=== PATIENT | male | born 1950 | race Caucasian/White ===

== ENCOUNTER 2022-12-07 15:35 | Inpatient (IN) | payer MEDICARE ==
[~2022-12-07] VITALS: Ht 170.2 cm; Wt 96.2 kg
[2022-12-08] MEDS ORDERED: REMEDY ESSENTIAL ZINC PASTE 113 GM TOP PRN (01:00)
[2022-12-08] MEDS ORDERED: DIAZ5TAB4 PO (02:09)
[2022-12-08] MEDS ORDERED: QUET25TA PO (02:09)
[2022-12-08] MEDS ORDERED: HEPA500039 IV (02:09)
[2022-12-08] MEDS ORDERED: SENN-18 PO (02:09)
[2022-12-08] MEDS ORDERED: HEPA500034 SQ (02:09)
[2022-12-08] MEDS ORDERED: BISA-79 PO (02:09)
[2022-12-08] MEDS ORDERED: ONDA4TAB5 PO (02:09)
[2022-12-08] MEDS ORDERED: CYAN100096 PO (02:09)
[2022-12-08] MEDS ORDERED: DIPH25TA25 PO (02:09)
[2022-12-08] MEDS ORDERED: LIDO1ADH23 TP (02:09)
[2022-12-08] MEDS ORDERED: HYPR15DR4 OP (02:09)
[2022-12-08] MEDS ORDERED: ACET-2605 PO ×2 (02:09)
[2022-12-08] MEDS ORDERED: POLY17PO4 PO (02:09)
[2022-12-08] MEDS ORDERED: GABA300C PO (02:09)
[2022-12-08 04:00] VITALS: BP 139/72; TEMP 97.6; O2SAT 92
[2022-12-08] MEDS: MORPHINE SULFATE IR 30 MG TABLET PO PRN ×2 (06:51→15:05)
[2022-12-08 07:48] VITALS: BP 113/51; TEMP 98.5; O2SAT 100
[2022-12-08] MEDS ORDERED: Medication Not On Formulary EA (Hypromellose (Isopto Tears) 2 DROP) OP SCH (13:15)
[2022-12-08] MEDS ORDERED: diphenhydrAMINE 25 MG CAP PO PRN (13:15)
[2022-12-08] MEDS ORDERED: DIAZEPAM 5 MG TABLET PO PRN (13:15)
[2022-12-08] MEDS ORDERED: NALOXONE HCL 0.4 MG/ML AMPUL IV PRN (13:30)
[2022-12-08] MEDS: SENNOSIDES 1 TABLET PO SCH ×2 (14:00→14:50)
[2022-12-08] MEDS: MIRALAX 17 GM POWD.PACK PO SCH ×2 (14:00→14:50)
[2022-12-08] MEDS: CYANOCOBALAMIN 1,000 MCG TABLET PO SCH ×2 (14:00→14:49)
[2022-12-08] MEDS: GABAPENTIN 300 MG CAPSULE PO SCH ×2 (14:49→17:00)
[2022-12-08] MEDS ORDERED: APIX5TAB PO (15:31)
[2022-12-08 16:18] VITALS: BP 121/59; TEMP 98; O2SAT 100
[2022-12-08] MEDS: APIXABAN 5 MG TABLET PO SCH ×2 (17:14→21:00)
[2022-12-08 20:00] VITALS: BP 144/90; TEMP 98.5; O2SAT 93
[2022-12-08] MEDS ORDERED: HEPARIN SODIUM,PORCINE 5,000 UNITS/ML VIAL SQ SCH (21:00)
[2022-12-08] MEDS: QUETIAPINE FUMARATE 25 MG TABLET PO SCH ×2 (21:00→21:04)
[2022-12-09 04:00] VITALS: BP 137/72; TEMP 98.2; O2SAT 100
[2022-12-09] MEDS: GABAPENTIN 300 MG CAPSULE PO SCH ×3 (08:36→17:23)
[2022-12-09] MEDS: MIRALAX 17 GM POWD.PACK PO SCH (08:36)
[2022-12-09] MEDS: PROTEIN SUPPLEMENT (PROSTAT) 30 ML LIQUID PO SCH (08:37)
[2022-12-09] MEDS: APIXABAN 5 MG TABLET PO SCH ×2 (08:38→21:09)
[2022-12-09] MEDS: CYANOCOBALAMIN 1,000 MCG TABLET PO SCH (08:38)
[2022-12-09] MEDS: SENNOSIDES 1 TABLET PO SCH (08:40)
[2022-12-09] MEDS: MORPHINE SULFATE IR 30 MG TABLET PO PRN (09:30)
[2022-12-09] MEDS ORDERED: QUETIAPINE FUMARATE 25 MG TABLET PO PRN (10:00)
[2022-12-09] MEDS ORDERED: FLEET ENEMA 133 ML BOTTLE RC PRN (10:00)
[2022-12-09 12:00] VITALS: BP 135/78; TEMP 98; O2SAT 95
[2022-12-09 18:25] VITALS: TEMP 97.3
[2022-12-09 23:04] VITALS: BP 128/72; TEMP 98.4; O2SAT 99
[2022-12-10] MEDS: MORPHINE SULFATE IR 30 MG TABLET PO PRN ×2 (03:44→09:10)
[2022-12-10 04:29] VITALS: BP 148/72; TEMP 98.2; O2SAT 99
[2022-12-10 06:46] LABS: BASOPHILS % (AUTO) 0.3 % (0.0-2.0); EOSINOPHILS # (AUTO) 0.1 K/uL (0.0-0.7); EOSINOPHILS % (AUTO) 1.2 % (0.0-7.0); HEMATOCRIT 35.9 % (36.7-47.1); HEMOGLOBIN 11.7 g/dL (12.5-16.3); LYMPHOCYTES # (AUTO) 1.2 K/uL (0.8-4.8); LYMPHOCYTES % (AUTO) 16.7 % (20.5-51.5); MEAN CORPUSCULAR HEMOGLOBIN 28.1 uug (23.8-33.4); MEAN CORPUSCULAR HGB CONC 33 g/dL (32.5-36.3); MEAN CORPUSCULAR VOLUME 86.3 fL (73.0-96.2); MONOCYTES # (AUTO) 0.5 K/uL (0.1-1.30); MONOCYTES % (AUTO) 6.9 % (0.0-11.0); NEUTROPHILS # (AUTO) 5.4 K/uL (1.8-8.9); NEUTROPHILS % (AUTO) 74.9 % (38.5-71.5); PLATELET COUNT (AUTO) 245 K/uL (152-348); RED BLOOD CELL COUNT(AUTO) 4.15 MIL/uL (4.06-5.63); RED CELL DISTRIBUTION WIDTH 13.8 % (12.1-16.2); WHITE BLOOD COUNT (AUTO) 7.3 K/uL (3.6-10.2)
[2022-12-10 06:58] LABS: DIFFERENTIAL COMMENT 1
[2022-12-10 07:03] LABS: CALCIUM 8.4 mg/dL (8.5-10.1); CREATININE 0.8 mg/dL (0.6-1.3); PHOSPHOROUS 3.5 mg/dL (2.5-4.9); POTASSIUM 3.9 mmol/L (3.5-5.1)
[2022-12-10 08:00] VITALS: BP 111/63; TEMP 98.2; O2SAT 92
[2022-12-10] MEDS: PROTEIN SUPPLEMENT (PROSTAT) 30 ML LIQUID PO SCH (08:56)
[2022-12-10] MEDS: MIRALAX 17 GM POWD.PACK PO SCH (09:00)
[2022-12-10] MEDS: SENNOSIDES 1 TABLET PO SCH (09:00)
[2022-12-10] MEDS: GABAPENTIN 300 MG CAPSULE PO SCH ×3 (09:10→16:51)
[2022-12-10] MEDS: CYANOCOBALAMIN 1,000 MCG TABLET PO SCH (09:12)
[2022-12-10] MEDS: APIXABAN 5 MG TABLET PO SCH ×2 (09:14→21:11)
[2022-12-10 16:00] VITALS: BP 120/61; TEMP 98.4; O2SAT 94
[2022-12-10 22:09] VITALS: BP 105/62; TEMP 98.2; O2SAT 99
[2022-12-11 05:00] VITALS: BP 111/58; TEMP 97.9; O2SAT 99
[2022-12-11 08:00] VITALS: BP 142/77; TEMP 97.6; O2SAT 96
[2022-12-11] MEDS: PROTEIN SUPPLEMENT (PROSTAT) 30 ML LIQUID PO SCH ×2 (08:00→08:28)
[2022-12-11] MEDS: MIRALAX 17 GM POWD.PACK PO SCH ×2 (08:24→08:32)
[2022-12-11] MEDS: APIXABAN 5 MG TABLET PO SCH ×2 (08:26→21:26)
[2022-12-11] MEDS: GABAPENTIN 300 MG CAPSULE PO SCH ×3 (08:27→17:00)
[2022-12-11] MEDS: SENNOSIDES 1 TABLET PO SCH ×2 (08:27→08:32)
[2022-12-11] MEDS: CYANOCOBALAMIN 1,000 MCG TABLET PO SCH ×2 (08:27→08:32)
[2022-12-11] MEDS ORDERED: FENTANYL 25 MCG/HR PATCH EACH TD SCH (09:00)
[2022-12-11] MEDS: MORPHINE SULFATE IR 30 MG TABLET PO PRN ×3 (15:42→21:29)
[2022-12-11] MEDS ORDERED: NALOXONE HCL 0.4 MG/ML AMPUL IV PRN (16:00)
[2022-12-11 16:19] VITALS: BP 130/69; TEMP 98.3; O2SAT 95
[2022-12-11] MEDS: FENTANYL 25 MCG/HR PATCH EACH TD SCH (18:21)
[2022-12-12] MEDS: MORPHINE SULFATE 2 MG/1 ML DISP.SYRIN IV PRN ×7 (00:38→23:17)
[2022-12-12 04:40] VITALS: BP 115/68; TEMP 98; O2SAT 95
[2022-12-12 07:48] VITALS: BP 123/67; TEMP 97.8; O2SAT 93
[2022-12-12] MEDS: MIRALAX 17 GM POWD.PACK PO SCH ×2 (09:00→10:07)
[2022-12-12] MEDS: PROTEIN SUPPLEMENT (PROSTAT) 30 ML LIQUID PO SCH (10:02)
[2022-12-12] MEDS: SENNOSIDES 1 TABLET PO SCH (10:06)
[2022-12-12] MEDS: GABAPENTIN 300 MG CAPSULE PO SCH ×3 (10:06→16:35)
[2022-12-12] MEDS: CYANOCOBALAMIN 1,000 MCG TABLET PO SCH (10:06)
[2022-12-12] MEDS: APIXABAN 5 MG TABLET PO SCH ×2 (10:11→20:21)
[2022-12-12 15:48] VITALS: BP 118/68; TEMP 97.3; O2SAT 93
[2022-12-12 20:00] VITALS: BP 118/69; TEMP 98.4; O2SAT 96
[2022-12-13] MEDS: MORPHINE SULFATE 2 MG/1 ML DISP.SYRIN IV PRN ×5 (04:31→21:24)
[2022-12-13 04:42] VITALS: BP 130/66; TEMP 98.1; O2SAT 95
[2022-12-13 08:00] VITALS: BP 117/44; TEMP 98.7; O2SAT 94
[2022-12-13] MEDS: PROTEIN SUPPLEMENT (PROSTAT) 30 ML LIQUID PO SCH (08:30)
[2022-12-13] MEDS: MIRALAX 17 GM POWD.PACK PO SCH (08:35)
[2022-12-13] MEDS: GABAPENTIN 300 MG CAPSULE PO SCH ×3 (08:35→17:24)
[2022-12-13] MEDS: CYANOCOBALAMIN 1,000 MCG TABLET PO SCH (08:35)
[2022-12-13] MEDS: SENNOSIDES 1 TABLET PO SCH (08:35)
[2022-12-13] MEDS: APIXABAN 5 MG TABLET PO SCH ×2 (08:36→21:24)
[2022-12-13 16:00] VITALS: BP 126/59; TEMP 97.7; O2SAT 96
[2022-12-13] MEDS: BISACODYL 10 MG SUPP.RECT RC SCH (21:00)
[2022-12-13 21:44] VITALS: BP 148/74; TEMP 98.2; O2SAT 99
[2022-12-14] MEDS: MORPHINE SULFATE 2 MG/1 ML DISP.SYRIN IV PRN ×6 (04:28→21:57)
[2022-12-14 08:00] VITALS: BP 115/65; TEMP 98; O2SAT 65; O2SAT 95
[2022-12-14] MEDS: MIRALAX 17 GM POWD.PACK PO SCH (08:50)
[2022-12-14] MEDS: FENTANYL 25 MCG/HR PATCH EACH TD SCH (08:50)
[2022-12-14] MEDS: CYANOCOBALAMIN 1,000 MCG TABLET PO SCH (08:51)
[2022-12-14] MEDS: SENNOSIDES 1 TABLET PO SCH (08:51)
[2022-12-14] MEDS: GABAPENTIN 300 MG CAPSULE PO SCH ×3 (08:51→18:21)
[2022-12-14] MEDS: PROTEIN SUPPLEMENT (PROSTAT) 30 ML LIQUID PO SCH (08:52)
[2022-12-14] MEDS: APIXABAN 5 MG TABLET PO SCH ×2 (08:52→21:56)
[2022-12-14] MEDS: POLYVINYL ALCOHOL OPHT DROPS 15 ML BOTTLE OP PRN (09:42)
[2022-12-14 16:00] VITALS: BP_SYST 116; BP_SYST 166; BP_DIAS 66; BP_DIAS 67; TEMP 98.1; TEMP 98.5; O2SAT 93
[2022-12-14 20:00] VITALS: BP 117/61; TEMP 98.4; O2SAT 96
[2022-12-14] MEDS: BISACODYL 10 MG SUPP.RECT RC SCH (21:00)
[2022-12-15] MEDS: MORPHINE SULFATE 2 MG/1 ML DISP.SYRIN IV PRN ×8 (01:02→23:24)
[2022-12-15 04:00] VITALS: BP 115/64; TEMP 97.8; O2SAT 94
[2022-12-15 08:17] VITALS: BP 110/49; TEMP 97.5; O2SAT 95
[2022-12-15] MEDS: PROTEIN SUPPLEMENT (PROSTAT) 30 ML LIQUID PO SCH (08:30)
[2022-12-15] MEDS: MIRALAX 17 GM POWD.PACK PO SCH ×2 (09:00→09:16)
[2022-12-15] MEDS: SENNOSIDES 1 TABLET PO SCH ×5 (09:16→17:24)
[2022-12-15] MEDS: GABAPENTIN 300 MG CAPSULE PO SCH ×3 (09:17→17:18)
[2022-12-15] MEDS: APIXABAN 5 MG TABLET PO SCH ×2 (09:19→20:27)
[2022-12-15] MEDS: CYANOCOBALAMIN 1,000 MCG TABLET PO SCH (09:20)
[2022-12-15 16:00] VITALS: BP 114/64; TEMP 98.2; O2SAT 95
[2022-12-15 20:00] VITALS: BP 146/76; TEMP 98.1; O2SAT 95
[2022-12-15] MEDS: BISACODYL 10 MG SUPP.RECT RC SCH (20:28)
[2022-12-16] MEDS: MORPHINE SULFATE 2 MG/1 ML DISP.SYRIN IV PRN ×7 (02:25→23:21)
[2022-12-16 04:00] VITALS: BP 125/70; TEMP 98.4; O2SAT 94
[2022-12-16 08:00] VITALS: BP 110/58; TEMP 98.2; O2SAT 94
[2022-12-16] MEDS: PROTEIN SUPPLEMENT (PROSTAT) 30 ML LIQUID PO SCH (08:45)
[2022-12-16] MEDS: GABAPENTIN 300 MG CAPSULE PO SCH ×3 (08:45→17:05)
[2022-12-16] MEDS: MIRALAX 17 GM POWD.PACK PO SCH (08:45)
[2022-12-16] MEDS: CYANOCOBALAMIN 1,000 MCG TABLET PO SCH (08:46)
[2022-12-16] MEDS: APIXABAN 5 MG TABLET PO SCH ×2 (08:50→20:22)
[2022-12-16 15:57] VITALS: BP 117/64; TEMP 98; O2SAT 94
[2022-12-16] MEDS: BISACODYL 10 MG SUPP.RECT RC SCH (20:29)
[2022-12-16 21:24] VITALS: BP 155/60; TEMP 98.3; O2SAT 99
[2022-12-17] MEDS: MORPHINE SULFATE 2 MG/1 ML DISP.SYRIN IV PRN ×8 (02:14→23:56)
[2022-12-17] MEDS: PROTEIN SUPPLEMENT (PROSTAT) 30 ML LIQUID PO SCH (08:21)
[2022-12-17] MEDS: CYANOCOBALAMIN 1,000 MCG TABLET PO SCH (08:21)
[2022-12-17] MEDS: GABAPENTIN 300 MG CAPSULE PO SCH ×3 (08:21→17:30)
[2022-12-17 08:39] VITALS: BP 134/75; TEMP 97.6; O2SAT 94
[2022-12-17] MEDS: MIRALAX 17 GM POWD.PACK PO SCH (09:00)
[2022-12-17] MEDS: SENNOSIDES 1 TABLET PO SCH (09:00)
[2022-12-17] MEDS: POLYVINYL ALCOHOL OPHT DROPS 15 ML BOTTLE OP PRN ×2 (09:32→13:36)
[2022-12-17 16:00] VITALS: BP 130/73; TEMP 99; O2SAT 95
[2022-12-17] MEDS: APIXABAN 5 MG TABLET PO SCH ×2 (17:44→20:45)
[2022-12-17 20:00] VITALS: TEMP 99.5
[2022-12-17] MEDS: BISACODYL 10 MG SUPP.RECT RC SCH (20:45)
[2022-12-18 05:26] VITALS: TEMP 98.2
[2022-12-18] MEDS: MORPHINE SULFATE 2 MG/1 ML DISP.SYRIN IV PRN ×6 (06:36→22:21)
[2022-12-18 07:40] VITALS: BP 92/67; TEMP 98.1; O2SAT 93
[2022-12-18] MEDS: PROTEIN SUPPLEMENT (PROSTAT) 30 ML LIQUID PO SCH (08:00)
[2022-12-18] MEDS: MIRALAX 17 GM POWD.PACK PO SCH (09:00)
[2022-12-18] MEDS: SENNOSIDES 1 TABLET PO SCH (09:00)
[2022-12-18] MEDS: GABAPENTIN 300 MG CAPSULE PO SCH ×3 (09:23→16:33)
[2022-12-18] MEDS: CYANOCOBALAMIN 1,000 MCG TABLET PO SCH (09:23)
[2022-12-18] MEDS: APIXABAN 5 MG TABLET PO SCH ×2 (09:25→22:00)
[2022-12-18 16:00] VITALS: BP 122/65; TEMP 98.9; O2SAT 95
[2022-12-18] MEDS: HYDROCORTISONE RECTAL SUPP 25 MG EACH RC SCH (16:34)
[2022-12-18] MEDS: BISACODYL 10 MG SUPP.RECT RC SCH (22:00)
[2022-12-19] MEDS: MORPHINE SULFATE 2 MG/1 ML DISP.SYRIN IV PRN ×5 (01:25→20:38)
[2022-12-19 08:00] VITALS: BP 131/69; TEMP 98.2; O2SAT 95
[2022-12-19] MEDS: PROTEIN SUPPLEMENT (PROSTAT) 30 ML LIQUID PO SCH (08:55)
[2022-12-19] MEDS: MIRALAX 17 GM POWD.PACK PO SCH (09:00)
[2022-12-19] MEDS: SENNOSIDES 1 TABLET PO SCH (09:00)
[2022-12-19] MEDS: HYDROCORTISONE RECTAL SUPP 25 MG EACH RC SCH ×4 (09:00→17:00)
[2022-12-19] MEDS: GABAPENTIN 300 MG CAPSULE PO SCH ×3 (09:20→17:09)
[2022-12-19] MEDS: APIXABAN 5 MG TABLET PO SCH ×2 (09:20→20:37)
[2022-12-19] MEDS: CYANOCOBALAMIN 1,000 MCG TABLET PO SCH (09:20)
[2022-12-19] MEDS ORDERED: MEDIHONEY= THERAHONEY 1.5 OZ TUBE TOP SCH (11:45)
[2022-12-19 16:08] VITALS: BP 138/79; TEMP 98.6; O2SAT 95
[2022-12-19] MEDS: MEDIHONEY= THERAHONEY 1.5 OZ TUBE TOP SCH (17:01)
[2022-12-19 20:00] VITALS: BP 106/57; TEMP 99.3; O2SAT 93
[2022-12-19] MEDS: BISACODYL 10 MG SUPP.RECT RC SCH (20:48)
[2022-12-19] MEDS: NEOMY/BACITRAC/POLYMI OINT 28.35 GM TUBE TOP SCH (20:49)
[2022-12-20] MEDS: MORPHINE SULFATE 2 MG/1 ML DISP.SYRIN IV PRN ×6 (00:15→21:53)
[2022-12-20 04:00] VITALS: BP 117/62; TEMP 97.6; O2SAT 95
[2022-12-20 08:00] VITALS: BP 114/63; TEMP 97.9; O2SAT 97
[2022-12-20] MEDS: HYDROCORTISONE RECTAL SUPP 25 MG EACH RC SCH ×3 (09:00→17:00)
[2022-12-20] MEDS: APIXABAN 5 MG TABLET PO SCH ×3 (09:00→21:00)
[2022-12-20] MEDS: MIRALAX 17 GM POWD.PACK PO SCH (09:00)
[2022-12-20] MEDS: PROTEIN SUPPLEMENT (PROSTAT) 30 ML LIQUID PO SCH (09:23)
[2022-12-20] MEDS: MEDIHONEY= THERAHONEY 1.5 OZ TUBE TOP SCH (09:24)
[2022-12-20] MEDS: NEOMY/BACITRAC/POLYMI OINT 28.35 GM TUBE TOP SCH ×4 (09:24→21:32)
[2022-12-20] MEDS: GABAPENTIN 300 MG CAPSULE PO SCH ×3 (11:58→18:05)
[2022-12-20] MEDS: SENNOSIDES 1 TABLET PO SCH (11:58)
[2022-12-20] MEDS: CYANOCOBALAMIN 1,000 MCG TABLET PO SCH (11:59)
[2022-12-20 16:00] VITALS: BP 112/57; TEMP 98.5; O2SAT 95
[2022-12-20] MEDS: BISACODYL 5 MG TABLET.DR PO PRN ×2 (20:48→21:14)
[2022-12-20] MEDS: BISACODYL 10 MG SUPP.RECT RC SCH (20:59)
[2022-12-20 22:56] VITALS: BP 123/85; TEMP 99.1; O2SAT 97
[2022-12-21] MEDS: MORPHINE SULFATE 2 MG/1 ML DISP.SYRIN IV PRN ×4 (00:58→12:40)
[2022-12-21 05:38] VITALS: BP 128/69; TEMP 98.2; O2SAT 94
[2022-12-21 06:53] VITALS: BP 128/69; TEMP 98.2; O2SAT 94
[2022-12-21 07:50] VITALS: BP 114/59; TEMP 98; O2SAT 95
[2022-12-21] MEDS: GABAPENTIN 300 MG CAPSULE PO SCH ×2 (08:34→12:39)
[2022-12-21] MEDS: CYANOCOBALAMIN 1,000 MCG TABLET PO SCH (08:34)
[2022-12-21] MEDS: SENNOSIDES 1 TABLET PO SCH (08:34)
[2022-12-21] MEDS: HYDROCORTISONE RECTAL SUPP 25 MG EACH RC SCH ×3 (08:34→12:40)
[2022-12-21] MEDS: APIXABAN 5 MG TABLET PO SCH (08:37)
[2022-12-21] MEDS: MIRALAX 17 GM POWD.PACK PO SCH ×2 (08:37→08:46)
[2022-12-21] MEDS: PROTEIN SUPPLEMENT (PROSTAT) 30 ML LIQUID PO SCH (08:38)
[2022-12-21] MEDS: MEDIHONEY= THERAHONEY 1.5 OZ TUBE TOP SCH (08:40)
== END 2022-12-21 13:40 | DRG 560 ==
PROVIDERS: ADMIT Physical Medicine & Rehabilitation Pain Medicine; ATTEND Physical Medicine & Rehabilitation Pain Medicine
DX: Z47.89 Encounter for other orthopedic aftercare (principal); D68.59 Other primary thrombophilia; I82.551 Chronic embolism and thrombosis of right peroneal vein; M47.12 Other spondylosis with myelopathy, cervical region; N31.9 Neuromuscular dysfunction of bladder, unspecified; M47.22 Other spondylosis with radiculopathy, cervical region; M40.202 Unspecified kyphosis, cervical region; K59.09 Other constipation; Z87.440 Personal history of urinary (tract) infections; E53.8 Deficiency of other specified B group vitamins; E66.01 Morbid (severe) obesity due to excess calories; I45.10 Unspecified right bundle-branch block; N40.0 Benign prostatic hyperplasia without lower urinary tract symptoms; Z98.1 Arthrodesis status; G62.9 Polyneuropathy, unspecified; M21.372 Foot drop, left foot; M21.371 Foot drop, right foot; M62.50 Muscle wasting and atrophy, not elsewhere classified, unspecified site; M62.81 Muscle weakness (generalized); R53.1 Weakness; S30.0XXA Contusion of lower back and pelvis, initial encounter; X58.XXXA Exposure to other specified factors, initial encounter; Y93.9 Activity, unspecified; Y92.9 Unspecified place or not applicable
CPT/HCPCS: 36415; 83735; 84100; 84484; 85025; 93005; 97535-GO-CO; A4663; A6209; A6213; J2270